=== PATIENT | male | born 1950 | race Caucasian/White ===

== ENCOUNTER 2024-07-20 10:43 | Emergency (ER) | payer MEDICARE, BC ==
[2024-07-20] MEDS: Diphtheria,Pertussis(Acell),Tetanus Vaccine 0.5 ML Syringe IM ONE (11:23)
[2024-07-20] MEDS: HYDROmorphone 0.5 MG/0.5 ML Syringe IM ONE (11:26)
[2024-07-20] MEDS: ceFAZolin 1 GM Vial IM ONE (12:05)
[2024-07-20] MEDS: Bacitracin Oint 1 GM U/D Packet TOP ONE (12:34)
== END 2024-07-20 12:51 | disposition home or self-care (01) ==
LOC: JP.ED 10:43
DX: S61.210A Laceration without foreign body of right index finger without damage to nail, initial encounter (principal); Z79.899 Other long term (current) drug therapy; W23.1XXA Caught, crushed, jammed, or pinched between stationary objects, initial encounter; Z23 Encounter for immunization
CPT/HCPCS: 73140-F6; 90471; 90715; 96372; 99283-25; 99284; J0690